=== PATIENT | female | born 1990 | race African-American/Black ===

== ENCOUNTER → 2016-11-30 | Outpatient (CLI) | payer MEDICAID | LOC: RAD 14:48 | PROVIDERS: ATTEND Internal Medicine Nephrology | DX: R10.9 Unspecified abdominal pain (principal); R31.29 Other microscopic hematuria | CPT/HCPCS: 74176 ==

== ENCOUNTER 2017-07-28 11:30 | Emergency (ER) | payer OTHER, MEDICAID ==
[2017-07-28] MEDS ORDERED: OXYCODONE-ACETAMINOPHEN 5-325 MG TABLET PO ONE (12:25)
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
[2017-07-28] MEDS ORDERED: DIPHENHYDRAMINE HCL 50 MG CAPSULE PO ONE (16:30)
[2017-07-28 16:57] VITALS: BP 131/63
== END 2017-07-28 16:55 | disposition home or self-care (01) ==
LOC: ER 11:30
DX: M54.2 Cervicalgia (principal); M54.5 Low back pain; V49.00XA Driver injured in collision with unspecified motor vehicles in nontraffic accident, initial encounter; Y93.89 Activity, other specified; Y92.481 Parking lot as the place of occurrence of the external cause; I10 Essential (primary) hypertension; Z88.0 Allergy status to penicillin; Z91.012 Allergy to eggs; Z91.018 Allergy to other foods; Z91.013 Allergy to seafood; Z88.8 Allergy status to other drugs, medicaments and biological substances; Z91.041 Radiographic dye allergy status
CPT/HCPCS: 72050; 72070; 72100; 72125; 99284

== ENCOUNTER → 2018-11-02 | Outpatient (CLI) | payer MEDICARE, MEDICAID ==
[2018-11-02 16:05] LABS: ANION GAP 10 (5-19); BLOOD UREA NITROGEN 12 mg/dL (7-20); CALCIUM 9.8 mg/dL (8.4-10.2); CARBON DIOXIDE 32 mmol/L (22-30); CHLORIDE 102 mmol/L (98-107); GLUCOSE 98 mg/dL (75-110); POTASSIUM 4.6 mmol/L (3.6-5.0)
[2018-11-02 16:20] LABS: APPEARANCE,URINE SLIGHTLY-CLOUDY; BILIRUBIN,URINE NEGATIVE (NEGATIVE); COLOR,URINE YELLOW; GLUCOSE, URINE NEGATIVE (NEGATIVE); KETONES,URINE NEGATIVE (NEGATIVE); LEUKOCYTE ESTERASE,URINE NEGATIVE (NEGATIVE); NITRITE,URINE NEGATIVE (NEGATIVE); PROTEIN,URINE >=500 mg/dL (NEGATIVE); URINE SPECIFIC GRAVITY 1.022; UROBILINOGEN,URINE NEGATIVE mg/dL (<2.0)
[2018-11-04 06:38] LABS: CREATININE URINE 210.9 mg/dL (Not Estab.)
[2018-11-04 10:44] LABS: MICROALBUMIN URINE 1375.5 ug/mL (Not Estab.)
== END ==
LOC: OD 14:25
PROVIDERS: ATTEND Internal Medicine Nephrology
DX: R80.9 Proteinuria, unspecified (principal); R10.9 Unspecified abdominal pain; I10 Essential (primary) hypertension
CPT/HCPCS: 36415; 80048; 81001; 82043; 82570

== ENCOUNTER → 2018-11-26 | Outpatient (CLI) | payer MEDICARE, MEDICAID ==
[2018-11-26 14:11] LABS: ANION GAP 9 (5-19); BLOOD UREA NITROGEN 13 mg/dL (7-20); CALCIUM 9.1 mg/dL (8.4-10.2); CARBON DIOXIDE 25 mmol/L (22-30); CHLORIDE 105 mmol/L (98-107); GLUCOSE 158 mg/dL (75-110); POTASSIUM 4.5 mmol/L (3.6-5.0); SODIUM 138.9 mmol/L (137-145)
[2018-11-26 14:45] LABS: URINE CREATININE 194.3 mg/dL (16-327)
[2018-11-26 14:57] LABS: 24 HOUR URINE PROTEIN RESULT 1783 mg/day (42-225); CREATININE 1.02 mg/dL (0.52-1.25); URINE PROTEIN 270.1 mg/dL (<12)
== END ==
LOC: OD 12:42
PROVIDERS: ATTEND Internal Medicine Nephrology
DX: I12.9 Hypertensive chronic kidney disease with stage 1 through stage 4 chronic kidney disease, or unspecified chronic kidney disease (principal); N18.9 Chronic kidney disease, unspecified; R80.9 Proteinuria, unspecified
CPT/HCPCS: 36415; 80048; 82575; 84156

== ENCOUNTER 2018-12-06 06:11 | Day surgery (SDC) | payer MEDICARE, MEDICAID ==
[2018-12-06 06:48] LABS: HEMATOCRIT 38.9 % (36.0-47.0); HEMOGLOBIN 13.2 g/dL (12.0-15.5); MEAN CORPUSCULAR HEMOGLOBIN 27.6 pg (27.0-33.4); MEAN CORPUSCULAR VOLUME 81 fl (80-97); PLATELET COUNT 260 10^3/uL (150-450); RED BLOOD COUNT 4.79 10^6/uL (3.72-5.28); RED CELL DISTRIBUTION WIDTH 16.2 % (11.5-14.0); WHITE BLOOD COUNT 5.1 10^3/uL (4.0-10.5)
[2018-12-06 06:53] LABS: PROTHROMBIN TIME 12.6 SEC (11.4-15.4)
[2018-12-06 06:54] LABS: PARTIAL THROMBOPLASTIN TIME 33.4 SEC (23.5-35.8)
[2018-12-06 07:11] LABS: BLOOD UREA NITROGEN 14 mg/dL (7-20)
[2018-12-06] MEDS ORDERED: MIDAZOLAM 2 MG/2 ML INJ ONE (08:25)
[2018-12-06] MEDS ORDERED: FENTANYL CITRATE INJ/PF 100 MCG/2 ML AMPUL ONE (08:25)
[2018-12-06] MEDS ORDERED: LIDOCAINE 1% INJ-PF (10 MG/ML) 30 ML SDV ONE (08:26)
[2018-12-06] MEDS ORDERED: OXYCODONE-ACETAMINOPHEN 5-325 MG TABLET ONE (09:50)
[2018-12-06] MEDS ORDERED: OXYCODONE-ACETAMINOPHEN 5-325 MG TABLET PO PRN (09:59)
--- NOTE | 2018-12-06 10:23 | RADIOLOGY REPORT (SQ) ---
EXAM DESCRIPTION: CT BIOPSY RENAL; CT NEEDLE PLACEMENT COMPLETED DATE/TIME: 12/06/2018 9:26 am REASON FOR STUDY: PROTEINURIA; PROTEINURIA, RENAL BIOPSY R80.9 PROTEINURIA, UNSPECIFIED Z79.01 SUN G TERM (CURRENT) USE OF ANTICOAGULANTS COMPARISON: None. RADIATION DOSE: CT Rad equipment meets quality standard of care and radiation dose reduction techniq ues were employed. CTDIvol: 4.0 - 19.7 mGy. DLP: 565 mGy-cm. mGy. LIMITATIONS: None. PROCEDURE: After obtaining informed consent and explaining the risks and benefits of conscious sedat ion,the patient agreed to the procedure. Preliminary CT scanning to localize the biopsy site was performed. A site was marked on the right ki dney and time out was performed. Procedure was performed using CT fluoroscopy. Total exposure time: [address] fluoroscopic images were obtained and saved to PACS. IV conscious sedation was administered and physician direction by the registered nurse using 1 millig abdoul of Versed and 100 micrograms of fentanyl. Physiologic monitoring was provided before, during, an d after sedation. The total sedation time was 39 minutes. Documentation face to face time, the performing proceduralist, spent monitoring the patient: 10 minut es. After sterile skin prep with Betadine, local lidocaine for skin and deep tissue anesthesia, the right kidney was localized. A coaxial 18 needle was used to obtain 4 cores of tissue from the right kidney . The biopsy tract was embolized with Gelfoam. All CT scanners at this facility use dose modulation, iterative reconstruction, and/or weight based d osing when appropriate to reduce radiation dose to as low as reasonably achievable (ALARA). [facility]: Dose Right [facility]: CareDose [facility]: Dose Right [facility]: Teradose 4D [facility]: [employer] FINDINGS: There were no immediate complications. Specimen was carried to cytology on sterile saline gauze and submitted to the supervisor acoustical tile carpenters for processing. Pathology is pending at the time of dict ation. IMPRESSION: CT GUIDED RIGHT KIDNEY CORTICAL BIOPSY. COMMENT: Patient medication list reviewed:Yes- Quality ID# [id number]:Eligible professional attests to docu menting in the medical record they obtained, updated, or reviewed the patient's current medications.. TECHNICAL DOCUMENTATION: JOB ID: [id number] Quality ID #[id number]: Final reports for procedures using fluoroscopy that document radiation exposure ai mya, or exposure time and number of fluorographic images (if radiation exposure indices are not avail able) Quality ID # [id number]: Final reports with documentation of one or more dose reduction techniques (e.g., Au tomated exposure control, adjustment of the mA and/or kV according to patient size, use of iterative reconstruction technique) 2010 [employer]- All Rights Reserved Reading location - IP/workstation name: [email or web address]
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
[2018-12-06 11:40] VITALS: BP 122/71
== END 2018-12-06 11:30 | disposition home or self-care (01) ==
LOC: RAD 06:11
PROVIDERS: ATTEND Internal Medicine Nephrology
DX: N26.9 Renal sclerosis, unspecified (principal); I12.9 Hypertensive chronic kidney disease with stage 1 through stage 4 chronic kidney disease, or unspecified chronic kidney disease; N18.9 Chronic kidney disease, unspecified; R80.9 Proteinuria, unspecified; E66.01 Morbid (severe) obesity due to excess calories; G35 Multiple sclerosis; E89.0 Postprocedural hypothyroidism; Z88.8 Allergy status to other drugs, medicaments and biological substances; Z88.0 Allergy status to penicillin; Z79.899 Other long term (current) drug therapy; Z85.850 Personal history of malignant neoplasm of thyroid; Z68.31 Body mass index [BMI] 31.0-31.9, adult
CPT/HCPCS: 36415; 84520; 82565; 85027; 85610; 85730; 88346; 88348 ×2; 88313 ×2; 77012; 50200; J2250; J3010; J3490; A9270

== ENCOUNTER → 2019-01-09 | Outpatient (CLI) | payer MEDICARE, MEDICAID ==
[2019-01-09 15:23] LABS: APPEARANCE,URINE CLEAR; BILIRUBIN,URINE NEGATIVE (NEGATIVE); COLOR,URINE YELLOW; GLUCOSE, URINE NEGATIVE (NEGATIVE); KETONES,URINE NEGATIVE (NEGATIVE); LEUKOCYTE ESTERASE,URINE NEGATIVE (NEGATIVE); NITRITE,URINE NEGATIVE (NEGATIVE); PROTEIN,URINE 100 mg/dL (NEGATIVE); URINE SPECIFIC GRAVITY 1.016; UROBILINOGEN,URINE NEGATIVE mg/dL (<2.0)
[2019-01-09 15:36] LABS: ANION GAP 11 (5-19); BLOOD UREA NITROGEN 9 mg/dL (7-20); CALCIUM 9.8 mg/dL (8.4-10.2); CARBON DIOXIDE 27 mmol/L (22-30); CHLORIDE 104 mmol/L (98-107); GLUCOSE 80 mg/dL (75-110); POTASSIUM 4.7 mmol/L (3.6-5.0); SODIUM 141.7 mmol/L (137-145)
[2019-01-09 15:41] LABS: HEMATOCRIT 37.8 % (36.0-47.0); MEAN CORPUSCULAR HEMOGLOBIN 28.6 pg (27.0-33.4); MEAN CORPUSCULAR HGB CONC 34.3 g/dL (32.0-36.0); MEAN CORPUSCULAR VOLUME 83 fl (80-97); PLATELET COUNT 237 10^3/uL (150-450); RED BLOOD COUNT 4.54 10^6/uL (3.72-5.28); RED CELL DISTRIBUTION WIDTH 15.6 % (11.5-14.0); WHITE BLOOD COUNT 4.7 10^3/uL (4.0-10.5)
== END ==
LOC: OD 14:06
PROVIDERS: ATTEND Physician Assistant Medical
DX: I12.9 Hypertensive chronic kidney disease with stage 1 through stage 4 chronic kidney disease, or unspecified chronic kidney disease (principal); N18.2 Chronic kidney disease, stage 2 (mild); R80.1 Persistent proteinuria, unspecified
CPT/HCPCS: 36415; 80048; 81001; 85027

== ENCOUNTER → 2019-09-24 | Outpatient (CLI) | payer MEDICARE, MEDICAID ==
[2019-09-24 14:43] LABS: APPEARANCE,URINE CLEAR; BILIRUBIN,URINE NEGATIVE (NEGATIVE); COLOR,URINE STRAW; GLUCOSE, URINE NEGATIVE (NEGATIVE); KETONES,URINE NEGATIVE (NEGATIVE); URINE SPECIFIC GRAVITY 1.014
[2019-09-24 14:44] LABS: ADD MANUAL MICROSCOPIC YES; BACTERIA,URINE 1+ /HPF; LEUKOCYTE ESTERASE,URINE TRACE (NEGATIVE); NITRITE,URINE NEGATIVE (NEGATIVE); PROTEIN,URINE >=500 mg/dL (NEGATIVE); UROBILINOGEN,URINE NEGATIVE mg/dL (<2.0)
[2019-09-24 14:59] LABS: URINE CREATININE 128.2 mg/dL (16-327)
[2019-09-24 15:10] LABS: UR PRO/CREAT RATIO RESULT 1.8 mg/mg (0.0-0.2); URINE PROTEIN 225.7 mg/dL (<12)
== END ==
LOC: OD 12:24
PROVIDERS: ATTEND Internal Medicine Nephrology
DX: I12.9 Hypertensive chronic kidney disease with stage 1 through stage 4 chronic kidney disease, or unspecified chronic kidney disease (principal); N18.2 Chronic kidney disease, stage 2 (mild)
CPT/HCPCS: 81001; 82570; 84156

== ENCOUNTER → 2020-01-07 | Outpatient (CLI) | payer MEDICARE, MEDICAID ==
[2020-01-07 17:00] LABS: ANION GAP 7 (5-19); BLOOD UREA NITROGEN 9 mg/dL (7-20); CALCIUM 9.1 mg/dL (8.4-10.2); CARBON DIOXIDE 26 mmol/L (22-30); CHLORIDE 106 mmol/L (98-107); GLUCOSE 98 mg/dL (75-110); POTASSIUM 4.1 mmol/L (3.6-5.0)
[2020-01-07 17:20] LABS: APPEARANCE,URINE SLIGHTLY-CLOUDY; BILIRUBIN,URINE NEGATIVE (NEGATIVE); COLOR,URINE YELLOW; GLUCOSE, URINE NEGATIVE (NEGATIVE); KETONES,URINE NEGATIVE (NEGATIVE); PROTEIN,URINE >=500 mg/dL (NEGATIVE); URINE SPECIFIC GRAVITY 1.022; UROBILINOGEN,URINE NEGATIVE mg/dL (<2.0)
[2020-01-07 17:27] LABS: URINE CREATININE 251.5 mg/dL (16-327)
[2020-01-07 17:38] LABS: UR PRO/CREAT RATIO RESULT 1.5 mg/mg (0.0-0.2)
== END ==
LOC: OD 16:06
PROVIDERS: ATTEND Internal Medicine Nephrology
DX: I12.9 Hypertensive chronic kidney disease with stage 1 through stage 4 chronic kidney disease, or unspecified chronic kidney disease (principal); N18.2 Chronic kidney disease, stage 2 (mild)
CPT/HCPCS: 36415; 80048; 81001; 82570; 84156